=== PATIENT | male | born 1985 | race African-American/Black ===

== ENCOUNTER 2016-07-31 17:46 | Observation (INO) | payer SELFPAY ==
[~2016-07-31] VITALS: Ht 172.7 cm; Wt 111.0 kg
[2016-07-31 17:48] VITALS: BP 185/85; PULSE 86; RESP 16; TEMP 97.8; O2SAT 97
--- NOTE | 2016-07-31 18:30 | RADRPT ---
EXAM DATE/TIME: 07/31/2016 18:10 [facility] COMPARISON: No previous studies available for comparison. INDICATIONS : Stroke alert; right side facial droop, generalized weakness. RADIATION DOSE: 47.43 CTDIvol (mGy) This report was called by Dr. Grossman to Dr. Vegas at 6: 28 PM MEDICAL HISTORY : Non-responsive. SURGICAL HISTORY : Non-responsive. ENCOUNTER: Initial ACUITY: 1 day PAIN SCALE: Non-responsive LOCATION: cranial TECHNIQUE: Multiple contiguous axial images were obtained of the head. Using automated exposure control and adj ustment of the mA and/or kV according to patient size, radiation dose was kept as low as reasonably a chievable to obtain optimal diagnostic quality images. FINDINGS: CEREBRUM: The ventricles are normal for age. There is a remote infarct in the left occipital lobe. No acute inf arct is seen. No extra-axial fluid collections are seen. POSTERIOR FOSSA: The cerebellum and brainstem are intact. The 4th ventricle is midline. The cerebellopontine angle i s unremarkable. EXTRACRANIAL: The visualized portion of the orbits is intact. SKULL: The calvaria is intact. No evidence of skull fracture. CONCLUSION: 1. Remote infarct left occipital lobe. No acute infarction on the current examination. Justin Grossman MD on July 31, 2016 at 18:25 Board Certified Radiologist. This report was verified electronically.
[2016-07-31] MEDS ORDERED: SODIUM CHLOR 0.9% 1000 ML INJ 1,000 ML IV ONE (18:45)
[2016-07-31] MEDS ORDERED: MORPHINE SULFATE 4 MG/ML INJ IV PUSH ONE (18:45)
[2016-07-31 18:51] VITALS: BP 155/76; PULSE 101; RESP 16; O2SAT 98
[2016-07-31 18:53] LABS: I-STAT POTASSIUM 3.8 MMOL/L (3.5-4.9); I-STAT SODIUM 141 MMOL/L (138-146)
[2016-07-31 18:59] LABS: AUTOMATED NEUTROPHIL # 2.1 TH/MM3 (1.8-7.7); BASOPHIL % 0.9 % (0.0-2.0); EOSINOPHIL % 0.5 % (0.0-4.0); HEMATOCRIT 30.6 % (39.0-51.0); LYMPH % 28.8 % (9.0-44.0); MEAN CELL VOLUME 97.1 FL (80.0-100.0); MEAN CORPUSCULAR HEMOGLOBIN 32.2 PG (27.0-34.0); MEAN CORPUSCULAR HGB CONC 33.2 % (32.0-36.0); MONO % 8.8 % (0.0-8.0); PLATELET COUNT 131 TH/MM3 (150-450); RED BLOOD COUNT 3.15 MIL/MM3 (4.50-5.90); RED CELL DISTRIBUTION WIDTH 27.2 % (11.6-17.2); WHITE BLOOD COUNT 3.5 TH/MM3 (4.0-11.0)
[2016-07-31 19:00] LABS: BLOOD, URINE NEG (NEG); GLUCOSE,URINE 1000 mg/dL (NEG); KETONE, URINE TRACE mg/dL (NEG); NITRITE,URINE NEG (NEG); PH, URINE 7.5 (5.0-8.5); URINE COLOR YELLOW (YELLW/STRAW)
[2016-07-31 19:05] LABS: HEMO FLAGS AUTO DIFF
[2016-07-31 19:06] LABS: AMPHETAMINE, URINE NEG (NEG); BARBITURATES, URINE NEG (NEG); COCAINE, URINE NEG (NEG)
[2016-07-31 19:14] LABS: CREATINE KINASE 277 U/L (39-308)
[2016-07-31 19:32] LABS: APTT (PATIENT) 25.9 SEC (24.3-30.1); INTERNATIONAL NORMALIZED RATIO 1.1 RATIO; PROTHROMBIN TIME - PATIENT 12.2 SEC (9.8-11.6)
[2016-07-31] MEDS ORDERED: FOLI1TAB4 PO (19:33)
[2016-07-31] MEDS ORDERED: XARE20TA PO (19:33)
[2016-07-31] MEDS ORDERED: LIPI20TA PO (19:33)
[2016-07-31] MEDS ORDERED: HYDR500C PO ×2 (19:33)
--- NOTE | 2016-07-31 19:43 | PD ---
HPI Chief Complaint: Stroke Alert Time Seen by Provider: 18:02 Travel History International Travel<30 days: No Contact w/Intl Traveler<30days: No Traveled to known affect area: No History of Present Illness HPI 30-year-old male was brought in from the triage with a stroke alert because of 30 minutes onset of right sided upper and lower extremity weakness. 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 These strokes were related to sickle cell crisis and he had required plasmapheresis. Patient is on Xarelto. He was brought in the wheelchair. Vital signs were otherwise stable. Initially when patient first came in he is not complaining of any pain and looked comfortable otherwise. Patient had hypertension. [facility] Past Medical History Narrative Medical List of his past medical, surgical, social and family history was reviewed from the nursing note. Cardiovascular Problems: Yes (IVC CHEST, R IVC GROIN) Cerebrovascular Accident: Yes (x 4) Medical other: Yes (protein c deficiency) Immunizations Current: Yes Sickle Cell Disease: Yes Past Surgical History Surgical History: No Previous Surgery Social History Alcohol Use: No Tobacco Use: No Substance Use: No Allergies-Medications (Allergen,Severity, Reaction): Coded Allergies: Compazine (Unverified Allergy, Mild, 07/31/16) Nonsteroidal Anti-Inflammatory Agts (Unverified Allergy, Mild, 07/31/16) Reglan (Unverified Allergy, Mild, 07/31/16) Zofran (Unverified Allergy, Mild, 07/31/16) Comments List of his allergies reviewed from the nursing note. Reported Meds & Prescriptions Reported Meds & Active Scripts Active Reported Xarelto (Rivaroxaban) 20 Mg Tab 20 Mg PO DAILY Folate (Folic Acid) 1 Mg Tab 1 Mg PO DAILY Lipitor (Atorvastatin Calcium) 20 Mg Tab 60 Mg PO HS Hydrea (Hydroxyurea) 500 Mg Cap 1,500 Mg PO BID Narrative Medication Awaiting for the nurse to med reconciliation. Review of Systems Except as stated in HPI: all other systems reviewed are Neg Physical Exam Narrative GENERAL: Awake, alert, obese, no obvious distress SKIN: Warm and dry. HEAD: Atraumatic. Normocephalic. EYES: Pupils equal and round. No scleral icterus. No injection or drainage. Pale ENT: No nasal bleeding or discharge. Mucous membranes pink and moist. NECK: Trachea midline. No JVD. CARDIOVASCULAR: Regular rate and rhythm. No murmur appreciated. RESPIRATORY: No accessory muscle use. Clear to auscultation. Breath sounds equal bilaterally. GASTROINTESTINAL: Abdomen soft, non-tender, nondistended. Hepatic and splenic margins not palpable. MUSCULOSKELETAL: No obvious deformities. No clubbing. No cyanosis. No edema. NEUROLOGICAL: Awake and alert. No obvious cranial nerve deficits. Right lower and upper extremity weakness with a strength of 3 out of 5. Normal speech. NIH stroke score of 6. PSYCHIATRIC: Appropriate mood and affect; insight and judgment normal. Data Data Last Documented VS Orders Diet Npo (07/31/16 Dinner) Activity Bed Rest (07/31/16 ) Electrocardiogram (07/31/16 ) I-Stat Creatinine (07/31/16 18:02) I-Stat Profile (07/31/16 18:02) Prothrombin Time / Inr (Pt) (07/31/16 18:02) Act Partial Throm Time (Ptt) (07/31/16 18:02) Complete Blood Count With Diff (07/31/16 18:02) Fibrinogen (07/31/16 18:02) Creatine Kinase (Cpk) (07/31/16 18:02) Troponin I (07/31/16 18:02) Ua Includes Microscopic (07/31/16 18:02) Drug Screen, Random Urine (07/31/16 18:02) Type And Screen (07/31/16 18:02) Ct Brain W/O Iv Contrast(Rout) (07/31/16 ) Consult Neurology (07/31/16 ) Blood Glucose (07/31/16 18:02) Ecg Monitoring (07/31/16 18:02) Neuro Checks Q2HX12,Q4H (07/31/16 18:02) Nursing Bedside Swallow Assess .ONCE (07/31/16 18:02) Iv Access Insert/Monitor (07/31/16 18:02) NPO (07/31/16 18:02) Oximetry (07/31/16 18:02) Oxygen Administration (07/31/16 18:02) Resp Oxygen Paulino C Titrat 1-4 L (07/31/16 18:02) Cath For Specimen (07/31/16 18:02) (Hub Use Only)Inp Phy Cons/Ref (07/31/16 ) Mri Brain W/O Contrast (07/31/16 ) Morphine Inj (Morphine Inj) (07/31/16 18:45) Sodium Chlor 0.9% 1000 Ml Inj (Ns 1000 M (07/31/16 18:45) Vascular Access Team Consult PRN (07/31/16 19:06) Vascular Poc Ultrasound (07/31/16 ) Hydromorphone Pf Inj (Dilaudid Pf Inj) (07/31/16 20:30) Hydromorphone Pf Inj (Dilaudid Pf Inj) (07/31/16 21:45) Hydromorphone Pf Inj (Dilaudid Pf Inj) (07/31/16 23:30) Place In Observation (07/31/16 ) Vital Signs (Adult) Q4H (07/31/16 23:30) Activity Oob With Assistance (07/31/16 23:30) Digital Business Analyst / Telemetry .CONTINUOUS (07/31/16 23:30) Sodium Chlor 0.9% 1000 Ml Inj (Ns 1000 M (07/31/16 23:30) Sodium Chloride 0.9% Flush (Ns Flush) (07/31/16 23:30) Sodium Chloride 0.9% Flush (Ns Flush) (08/01/16 09:00) Case Management Consult (07/31/16 23:30) Naloxone Inj (Narcan Inj) (07/31/16 23:30) Admit Order (Ed Use Only) (07/31/16 23:37) Labs MDM Medical Decision Making Medical Screen Exam Complete: Yes Emergency Medical Condition: Yes Medical Record Reviewed: Yes Interpretation(s) Twelve-lead EKG was reviewed by me. Normal sinus rhythm, normal axis, inferior T wave inversions, tachycardia. Heart rate of 108 bpm. Differential Diagnosis TIA, CVA Narrative Course 7:30 PM based on the stroke alert neurologist was called. I discussed the case with the neurologist and explained to him that even though the findings were suggestive of right sided hemiparesis somehow it did not seem very genuine. He has certainly red flags in the form of [place] of [place], allergic to NSAIDs, CT scan dye, MRI contrast. In any case given the fact that he's on Xarelto he was not a TPA candidate. The neurologist agreed. He wanted an MRI without contrast to be ordered. CT scan of the head showed a remote infarct. Awaiting for the MRI to be done and resulted. Patient has been a very difficult IV stick and he has mentioned to the nurse that she requires PICC line every time he comes to the emergency room. A PICC line has been ordered. Case has been signed over to the oncoming ER physician. Patient started asking for pain medication since as per him to the nurse he was hurting from his sickle cell disease. IV morphine was ordered. His hemoglobin was back and it was 10. He does not need transfusion based on this hemoglobin. Critical Care Narrative Aggregate critical care time was 30 minutes. Time to perform other separately billable procedures was not included in the critical care time. My time did not include minutes spent treating any other patients simultaneously or on activities that did not directly contribute to the patient's treatment. The services I provided to this patient were to treat and/or prevent clinically significant deterioration that could result in: Stroke alert I provided critical care services requiring my management, as noted below: Chart data review, documentation time, medication orders and management, vital sign assessments/reviewing monitor data, ordering and reviewing lab tests, ordering and interpreting/reviewing x-rays and diagnostic studies, care of the patient and discussion of the patient with the admitting physicians. Procedures EKG Prior to Arrival: No Physician Communication Physician Communication Dr. Butcher Scripts Metformin (Glucophage)500 Mg [id number] Mg PO BIDPC #60 TAB Prov:Kevin Mcneill MD 08/03/16 Vickie Vegas MD Jul 31, 2016 19:43 MG/DL Urine Leukocyte Esterase NEG Urine RBC LESS THAN 1 /hpf Urine WBC LESS THAN 1 /hpf Microscopic Urinalysis Comment Urine Opiates Screen POS Urine Barbiturates Screen NEG Urine Amphetamines Screen NEG Urine Benzodiazepines Screen NEG Urine Cocaine Screen NEG Urine Cannabinoids Screen NEG Bedside Hemoglobin 10.2 G/DL Bedside Hematocrit 30.0 % Bedside Sodium 141 MMOL/L Bedside Potassium 3.8 MMOL/L Bedside Chloride 103 MMOL/L Bedside Blood Urea Nitrogen LESS THAN 3 MG/DL Bedside Creatinine 0.7 MG/DL Bedside Glucose 294 MG/DL Total Creatine Kinase 277 U/L Troponin I LESS THAN 0.02 NG/ML MDM Medical Decision Making Medical Screen Exam Complete: Yes Emergency Medical Condition: Yes Medical Record Reviewed: Yes Interpretation(s) Twelve-lead EKG was reviewed by me. Normal sinus rhythm, normal axis, inferior T wave inversions, tachycardia. Heart rate of 108 bpm. Differential Diagnosis TIA, CVA Narrative Course 7:30 PM based on the stroke alert neurologist was called. I discussed the case with the neurologist and explained to him that even though the findings were suggestive of right sided hemiparesis somehow it did not seem very genuine. He has certainly red flags in the form of [place], allergic to NSAIDs, CT scan dye, MRI contrast. In any case given the fact that he's on Xarelto he was not a TPA candidate. The neurologist agreed. He wanted an MRI without contrast to be ordered. CT scan of the head showed a remote infarct. Awaiting for the MRI to be done and resulted. Patient has been a very difficult IV stick and he has mentioned to the nurse that she requires PICC line every time he comes to the emergency room. A PICC line has been ordered. Case has been signed over to the oncoming ER physician. Patient started asking for pain medication since as per him to the nurse he was hurting from his sickle cell disease. IV morphine was ordered. His hemoglobin was back and it was 10. He does not need transfusion based on this hemoglobin. Critical Care Narrative Aggregate critical care time was 30 minutes. Time to perform other separately billable procedures was not included in the critical care time. My time did not include minutes spent treating any other patients simultaneously or on activities that did not directly contribute to the patient's treatment. The services I provided to this patient were to treat and/or prevent clinically significant deterioration that could result in: Stroke alert I provided critical care services requiring my management, as noted below: Chart data review, documentation time, medication orders and management, vital sign assessments/reviewing monitor data, ordering and reviewing lab tests, ordering and interpreting/reviewing x-rays and diagnostic studies, care of the patient and discussion of the patient with the admitting physicians. Procedures EKG Prior to Arrival: No Physician Communication Physician Communication Vickie Cagle MD Jul 31, 2016 19:43
[2016-07-31 19:46] LABS: KERATOCYTES OCC (NORMAL); OVALOCYTES 1+ (NORMAL); PLATELET ESTIMATE SMEAR LOW (NORMAL); PLATELET MORPHOLOGY NORMAL (NORMAL); TEARDROP RBCS 1+ (NORMAL)
[2016-07-31 19:47] LABS: SCAN/DIFF AUTO DIFF CONFIRMED
[2016-07-31 20:15] VITALS: BP 127/67; PULSE 90; RESP 16; O2SAT 100
[2016-07-31] MEDS ORDERED: HYDROmorphone HCL PF 1 MG/ML VIAL IV PUSH ONE ×3 (20:30→23:30)
[2016-07-31 21:32] VITALS: PULSE 80
--- NOTE | 2016-07-31 22:50 | RADRPT ---
EXAM DATE/TIME: 07/31/2016 21:50 [facility] COMPARISON: No previous studies available for comparison. INDICATIONS : CVA. MEDICAL HISTORY : Sickle Cell disease. Deep venous thrombosis. Protein C deficiency. SURGICAL HISTORY : IVC Filter placement. ENCOUNTER: Subsequent ACUITY: 1 day PAIN SCORE: 8/10 LOCATION: cranial TECHNIQUE: Multiplanar, multisequence MRI of the brain was performed without contrast. FINDINGS: CEREBRUM: There is a remote infarct in the left occipital lobe. No recent infarct is identified. No mass or mid line shift. No hydrocephalus. WHITE MATTER: No significant signal abnormalities are seen in the white matter. POSTERIOR FOSSA: The cerebellum and brainstem are intact. The 4th ventricle is midline. The cerebellopontine angle is unremarkable. The cerebellar tonsils are normal in position. DIFFUSION IMAGING: No focal areas of restricted diffusion are seen. No evidence of acute infarction. EXTRACRANIAL: The visualized portions of the orbits and paranasal sinuses are unremarkable. CONCLUSION: 1. Remote infarct in left occipital lobe. No acute infarct or mass. Justin Grossman MD on July 31, 2016 at 22:45 Board Certified Radiologist. This report was verified electronically.
--- NOTE | 2016-07-31 23:25 | PD ---
Physical Exam Time Seen by Provider: 23:[address] Vegas left this patient with me to check the MRI and to discharge if his weakness on the right side went away and 2 admitted if no weakness was persistent. Data Data Last Documented VS Vital Signs Date Time Temp Pulse Resp B/P Pulse Ox O2 Delivery O2 Flow Rate FiO2 07/31/16 23:27 110 16 134/79 100 Nasal Cannula 2 07/31/16 17:48 97.8 Orders Diet Npo (07/31/16 Dinner) Activity Bed Rest (07/31/16 ) Electrocardiogram (07/31/16 ) I-Stat Creatinine (07/31/16 18:02) I-Stat Profile (07/31/16 18:02) Prothrombin Time / Inr (Pt) (07/31/16 18:02) Act Partial Throm Time (Ptt) (07/31/16 18:02) Complete Blood Count With Diff (07/31/16 18:02) Fibrinogen (07/31/16 18:02) Creatine Kinase (Cpk) (07/31/16 18:02) Troponin I (07/31/16 18:02) Ua Includes Microscopic (07/31/16 18:02) Drug Screen, Random Urine (07/31/16 18:02) Type And Screen (07/31/16 18:02) Ct Brain W/O Iv Contrast(Rout) (07/31/16 ) Consult Neurology (07/31/16 ) Blood Glucose (07/31/16 18:02) Ecg Monitoring (07/31/16 18:02) Neuro Checks Q2HX12,Q4H (07/31/16 18:02) Nursing Bedside Swallow Assess .ONCE (07/31/16 18:02) Iv Access Insert/Monitor (07/31/16 18:02) NPO (07/31/16 18:02) Oximetry (07/31/16 18:02) Oxygen Administration (07/31/16 18:02) Resp Oxygen Paulino C Titrat 1-4 L (07/31/16 18:02) Cath For Specimen (07/31/16 18:02) (Hub Use Only)Inp Phy Cons/Ref (07/31/16 ) Mri Brain W/O Contrast (07/31/16 ) Morphine Inj (Morphine Inj) (07/31/16 18:45) Sodium Chlor 0.9% 1000 Ml Inj (Ns 1000 M (07/31/16 18:45) Vascular Access Team Consult PRN (07/31/16 19:06) Vascular Poc Ultrasound (07/31/16 ) Hydromorphone Pf Inj (Dilaudid Pf Inj) (07/31/16 20:30) Hydromorphone Pf Inj (Dilaudid Pf Inj) (07/31/16 21:45) Hydromorphone Pf Inj (Dilaudid Pf Inj) (07/31/16 23:30) Place In Observation (07/31/16 ) Vital Signs (Adult) Q4H (07/31/16 23:30) Activity Oob With Assistance (07/31/16 23:30) Flight Controls Engineer / Telemetry .CONTINUOUS (07/31/16 23:30) Diet Heart Healthy (08/01/16 Breakfast) Sodium Chlor 0.9% 1000 Ml Inj (Ns 1000 M (07/31/16 23:30) Sodium Chloride 0.9% Flush (Ns Flush) (07/31/16 23:30) Sodium Chloride 0.9% Flush (Ns Flush) (08/01/16 09:00) Case Management Consult (07/31/16 23:30) Naloxone Inj (Narcan Inj) (07/31/16 23:30) Labs Laboratory Tests Test 07/31/16 07/31/16 07/31/16 18:15 18:25 18:37 White Blood Count 3.5 TH/MM3 Red Blood Count 3.15 MIL/MM3 Hemoglobin 10.2 GM/DL Hematocrit 30.6 % Mean Corpuscular Volume 97.1 FL Mean Corpuscular Hemoglobin 32.2 PG Mean Corpuscular Hemoglobin 33.2 % Concent Red Cell Distribution Width 27.2 % Platelet Count 131 TH/MM3 Mean Platelet Volume 7.8 FL Neutrophils (%) (Auto) 61.0 % Lymphocytes (%) (Auto) 28.8 % Monocytes (%) (Auto) 8.8 % Eosinophils (%) (Auto) 0.5 % Basophils (%) (Auto) 0.9 % Neutrophils # (Auto) 2.1 TH/MM3 Lymphocytes # (Auto) 1.0 TH/MM3 Monocytes # (Auto) 0.3 TH/MM3 Eosinophils # (Auto) 0.0 TH/MM3 Basophils # (Auto) 0.0 TH/MM3 CBC Comment AUTO DIFF Differential Comment AUTO DIFF CONFIRMED Platelet Estimate LOW Platelet Morphology Comment NORMAL Tear Drop Cells 1+ Ovalocytes 1+ Keratocytes OCC Prothrombin Time 12.2 SEC Prothromb Time International 1.1 RATIO Ratio Activated Partial 25.9 SEC Thromboplast Time Fibrinogen 249 mg/dL Urine Color YELLOW Urine Turbidity CLEAR Urine pH 7.5 Urine Specific Chandler 1.020 Urine Protein NEG mg/dL Urine Glucose (UA) 1000 mg/dL Urine Ketones TRACE mg/dL Urine Occult Blood NEG Urine Nitrite NEG Urine Bilirubin NEG Urine Urobilinogen LESS THAN 2.0 MG/DL Urine Leukocyte Esterase NEG Urine RBC LESS THAN 1 /hpf Urine WBC LESS THAN 1 /hpf Microscopic Urinalysis Comment Urine Opiates Screen POS Urine Barbiturates Screen NEG Urine Amphetamines Screen NEG Urine Benzodiazepines Screen NEG Urine Cocaine Screen NEG Urine Cannabinoids Screen NEG Bedside Hemoglobin 10.2 G/DL Bedside Hematocrit 30.0 % Bedside Sodium 141 MMOL/L Bedside Potassium 3.8 MMOL/L Bedside Chloride 103 MMOL/L Bedside Blood Urea Nitrogen LESS THAN 3 MG/DL Bedside Creatinine 0.7 MG/DL Bedside Glucose 294 MG/DL Total Creatine Kinase 277 U/L Troponin I LESS THAN 0.02 NG/ML Blood Type B POSITIVE Antibody Screen NEGATIVE Blood Bank Comment [facility] Medical Record Reviewed: Yes Supervised Visit with CATHLEEN: Yes Differential Diagnosis Malingering to obtain narcotic pain medications, ischemic CVA, sickle cell pain crisis Narrative Course The patient has requested many times for pain medications, specifically Dilaudid. He may be malingering to obtain narcotic pain medications. He has persistent weakness on the right hand and right leg. The MRI shows remote infarct in the left occipital lobe and no acute infarct or mass. Impression: Right hemiparesis Physician Communication Physician Communication I discussed the patient with Dr. Magdaleno, the patient will be 23 hour observation to her. Diagnosis Primary Impression: Hemiparesis of right dominant side Additional Impression: Sickle cell pain crisis Gonzalez Crawley MD Jul 31, 2016 23:25
[2016-07-31 23:27] VITALS: BP 134/79; PULSE 110; RESP 16; O2SAT 100
[2016-07-31] MEDS ORDERED: SODIUM CHLORIDE 0.9% FLUSH 10 ML FLUSH IV FLUSH PRN (23:30)
[2016-07-31] MEDS ORDERED: NALOXONE HCL 0.4 MG/ML AMP IV PRN (23:30)
[2016-08-01] VITALS (8 sets, daily range): BP systolic 139–161; BP diastolic 76–96; PULSE 70–110; RESP 16–20; TEMP 98.1–98.4; O2SAT 96–99
[2016-08-01] MEDS: SODIUM CHLOR 0.9% 1000 ML INJ 1,000 ML IV SCH ×3 (00:26→19:30)
[2016-08-01] MEDS ORDERED: KETOROLAC TROMETHAMINE 30 MG/ML (IVP) VIAL IV PUSH ONE (03:15)
[2016-08-01] MEDS ORDERED: HYDROmorphone HCL PF 1 MG/ML VIAL IV PUSH PRN (08:00)
--- NOTE | 2016-08-01 08:45 | PD.CONS ---
History of Present Illness Service Neurology Consult Requested By er Reason for Consult stroke Primary Care Physician No Primary Care Physician History of Present Illness 30-year-old male was brought in from the triage with a stroke alert because of 30 minutes onset of right sided upper and lower extremity weakness. 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 Patient says that he has history of sickle cell disease and has had strokes in the past that has affected his vision. These strokes were related to sickle cell crisis and he had required plasmapheresis. He is on xarelto. ct brain no ich, no acute lesion. glucose 294. hx of protein c deficiency, dvt's, ivc filter. currently, he feels some weakness on his rt side but is more focused on his pain and getting dilaudid for comfort. has recieved this yesterday. no neck pain. no b/b incontinence. PFSH Past Medical History Narrative Medical List of his past medical, surgical, social and family history was reviewed from the nursing note. Cardiovascular Problems: Yes (IVC CHEST, R IVC GROIN) Cerebrovascular Accident: Yes (x 4) Medical other: Yes (protein c deficiency) Immunizations Current: Yes Sickle Cell Disease: Yes Past Surgical History Surgical History: No Previous Surgery Social History Alcohol Use: No Tobacco Use: No Substance Use: No Allergies-Medications (Allergen,Severity, Reaction): Coded Allergies: Compazine (Unverified Allergy, Mild, 07/31/16) Nonsteroidal Anti-Inflammatory Agts (Unverified Allergy, Mild, 07/31/16) Reglan (Unverified Allergy, Mild, 07/31/16) Zofran (Unverified Allergy, Mild, 07/31/16) Comments List of his allergies reviewed from the nursing note. Narrative Medication Awaiting for the nurse to med reconciliation. Review of Systems Except as stated in HPI: all other systems reviewed are Neg Review of Systems All other ROS: ROS reviewed as documented in chart Past Family Social History Allergies: Coded Allergies: Compazine (Unverified Allergy, Mild, 07/31/16) Nonsteroidal Anti-Inflammatory Agts (Unverified Allergy, Mild, 07/31/16) Reglan (Unverified Allergy, Mild, 07/31/16) Zofran (Unverified Allergy, Mild, 07/31/16) Active Ordered Medications Current Medications Medications (Trade) Dose Ordered Sig/Ashu Route Start Time Stop Time Status Last Admin (NS 1000 ml Inj) 1,000 ml @ 100 mls/hr Q10H IV 07/31/16 23:30 08/01/16 00:26 (NS Flush) 2 ml UNSCH PRN IV FLUSH 07/31/16 23:30 (NS Flush) 2 ml BID IV FLUSH 08/01/16 09:00 (Narcan Inj) 0.4 mg UNSCH PRN IV 07/31/16 23:30 (Dilaudid Pf Inj) 1 mg Q8HR PRN IV PUSH 08/01/16 08:00 Exam I&O / VS Vital Signs Date Time Temp Pulse Resp B/P Pulse Ox O2 Delivery O2 Flow Rate FiO2 08/01/16 07:36 70 20 155/87 96 08/01/16 06:23 Nasal Cannula 2.00 08/01/16 02:22 93 20 155/96 97 Nasal Cannula 2 08/01/16 00:26 99 16 140/87 99 Nasal Cannula 2 07/31/16 23:27 110 16 134/79 100 Nasal Cannula 2 07/31/16 21:32 80 07/31/16 20:15 90 16 127/67 100 Nasal Cannula 2 07/31/16 18:51 101 16 155/76 98 Nasal Cannula 2 07/31/16 17:52 99 Nasal Cannula 2 07/31/16 17:48 97.8 86 16 185/85 97 General: Alert and Oriented, Mild distress Eye: EOMI Respiratory: Non-labored respirations Neurologic: Alert, Oriented, Normal DTR's Psychiatric: Cooperative Exam Comments ox 3. in mild distress 2/2 pain, eomi, rt superior pie in the meka field cut, eomi, face sym, sahu to gravity with mild rt sided weakness, which may be proportional to pt effort; also states this has been weak before, no clonus, planter flexor Review/Management Diagnosis/Plan: (1) Hemiparesis of right dominant side Plan: no acute infarct on mri scan hx of protein c deficiency and dvt's in the past recs continue OAC check mra brain/carotids consider heme eval for sickle cell ?opiod seeking vs sickle cell crisis- defer to medical wt loss/exercise/bp/lipid/glucose control (2) Chronic ischemic left CREDIT RISK REVIEW OFFICER stroke (3) Sickle cell pain crisis (4) Obesity (BMI 30-39.9) Stanislaw Carcamo MD Aug 01, 2016 08:45
--- NOTE | 2016-08-01 08:58 | HHI.HP ---
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 The patient reports yesterday he started to notice weakness of the right face, right arm, and right leg. He feels he is having a sickle cell crisis however he has presented the same way with previous strokes. He states usually once a stroke is ruled out, it requires IV Dilaudid 2mg q2h and IV Benadryl 50mg q4h to treat his sickle cell crisis. He complains of diffuse pain throughout his back, hands, legs. Denies any new injury. Denies any recent nausea/vomiting/diarrhea. He has been eating well. He is very upset he is not receiving his usual dose of pain medication and is difficult to obtain further information. His bag bleacher is Dr. Damico in [place], [place] (call placed to the office at , left a message with secretary office clerk for to return call). His internal medicine/neurologist is Dr. Michael Zuluaga in [place], [place] (call placed to , office still closed at this time). 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 Past Surgical History IVC filters in chest and groin Reported Medications Xarelto 20 mg daily Hydroxyurea 1500 mg twice a day Lipitor 60 mg at bedtime Folate 1 mg daily Allergies: Coded Allergies: Compazine (Unverified Allergy, Mild, 07/31/16) Nonsteroidal Anti-Inflammatory Agts (Unverified Allergy, Mild, 07/31/16) Reglan (Unverified Allergy, Mild, 07/31/16) Zofran (Unverified Allergy, Mild, 07/31/16) Active Ordered Medications Current Medications Medications (Trade) Dose Ordered Sig/Ashu Route Start Time Stop Time Status Last Admin (NS 1000 ml Inj) 1,000 ml @ 100 mls/hr Q10H IV 07/31/16 23:30 08/01/16 00:26 (NS Flush) 2 ml UNSCH PRN IV FLUSH 07/31/16 23:30 (NS Flush) 2 ml BID IV FLUSH 08/01/16 09:00 (Narcan Inj) 0.4 mg UNSCH PRN IV 07/31/16 23:30 (Dilaudid Pf Inj) 1 mg Q8HR PRN IV PUSH 08/01/16 08:00 (Xarelto) 20 mg DAILY PO 08/01/16 09:00 UNV Family History Sickle cell, heart disease, protein C deficiency, hypothyroidism Social History Denies any tobacco, alcohol, or illicit drug use. Physical Exam Vital Signs Vital Signs Date Time Temp Pulse Resp B/P Pulse Ox O2 Delivery O2 Flow Rate FiO2 08/01/16 07:36 70 20 155/87 96 08/01/16 06:23 Nasal Cannula 2.00 08/01/16 02:22 93 20 155/96 97 Nasal Cannula 2 08/01/16 00:26 99 16 140/87 99 Nasal Cannula 2 07/31/16 23:27 110 16 134/79 100 Nasal Cannula 2 07/31/16 21:32 80 07/31/16 20:15 90 16 127/67 100 Nasal Cannula 2 07/31/16 18:51 101 16 155/76 98 Nasal Cannula 2 07/31/16 17:52 99 Nasal Cannula 2 07/31/16 17:48 97.8 86 16 185/85 97 Physical Exam GENERAL: Well-nourished, well-developed middle aged AA male patient in NAD. SKIN: Warm and dry. No rash. HEAD: Normocephalic. Atraumatic. EYES: Pupils equal and round. No scleral icterus. No injection or drainage. ENT: No nasal bleeding or discharge. Mucous membranes pink and moist. NECK: Supple. Trachea midline. CARDIOVASCULAR: Regular rate and rhythm. S1, S2 noted. No murmur appreciated. RESPIRATORY: No accessory muscle use. Clear to auscultation. Breath sounds equal bilaterally. GASTROINTESTINAL: Abdomen soft, non-tender, nondistended. Normoactive bowel sounds x4. MUSCULOSKELETAL: No obvious deformities. Extremities without clubbing, cyanosis , or edema. NEUROLOGICAL: Awake and alert. No obvious cranial nerve deficits. Motor grossly within normal limits. 5/5 muscle strength in bilateral upper and lower extremities. Normal speech. PSYCHIATRIC: Agitated mood; insight and judgment normal. Laboratory Laboratory Tests Test 07/31/16 07/31/16 07/31/16 18:15 18:25 18:37 White Blood Count 3.5 Red Blood Count 3.15 Hemoglobin 10.2 Hematocrit 30.6 Mean Corpuscular Volume 97.1 Mean Corpuscular Hemoglobin 32.2 Mean Corpuscular Hemoglobin 33.2 Concent Red Cell Distribution Width 27.2 Platelet Count 131 Mean Platelet Volume 7.8 Neutrophils (%) (Auto) 61.0 Lymphocytes (%) (Auto) 28.8 Monocytes (%) (Auto) 8.8 Eosinophils (%) (Auto) 0.5 Basophils (%) (Auto) 0.9 Neutrophils # (Auto) 2.1 Lymphocytes # (Auto) 1.0 Monocytes # (Auto) 0.3 Eosinophils # (Auto) 0.0 Basophils # (Auto) 0.0 CBC Comment AUTO DIFF Differential Comment AUTO DIFF CONFIRMED Platelet Estimate LOW Platelet Morphology Comment NORMAL Tear Drop Cells 1+ Ovalocytes 1+ Keratocytes OCC Prothrombin Time 12.2 Prothromb Time International 1.1 Ratio Activated Partial 25.9 Thromboplast Time Fibrinogen 249 Urine Color YELLOW Urine Turbidity CLEAR Urine pH 7.5 Urine Specific [place] 1.020 Urine Protein NEG Urine Glucose (UA) 1000 Urine Ketones TRACE Urine Occult Blood NEG Urine Nitrite NEG Urine Bilirubin NEG Urine Urobilinogen LESS THAN 2.0 Urine Leukocyte Esterase NEG Urine RBC LESS THAN 1 Urine WBC LESS THAN 1 Microscopic Urinalysis Comment Urine Opiates Screen POS Urine Barbiturates Screen NEG Urine Amphetamines Screen NEG Urine Benzodiazepines Screen NEG Urine Cocaine Screen NEG Urine Cannabinoids Screen NEG Bedside Hemoglobin 10.2 Bedside Hematocrit 30.0 Bedside Sodium 141 Bedside Potassium 3.8 Bedside Chloride 103 Bedside Blood Urea Nitrogen LESS THAN 3 Bedside Creatinine 0.7 Bedside Glucose 294 Total Creatine Kinase 277 Troponin I LESS THAN 0.02 Blood Type B POSITIVE Antibody Screen NEGATIVE Blood Bank Comment Result Diagram: 07/31/161814 Imaging Last Impressions Head CT 07/31/16 0000 Signed Impressions: Service Date/Time: July 18:10 - CONCLUSION: 1. Remote infarct left occipital lobe. No acute infarction on the current examination. Justin Grossman MD Brain MRI 07/31/16 0000 Signed Impressions: Service Date/Time: July 21:50 - CONCLUSION: 1. Remote infarct in left occipital lobe. No acute infarct or mass. 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 Right Sided Hemiparesis: of face/RUE/RLE x1day. Head CT and brain MRI images reviewed, shows remote infarct left occipital lobe; no acute infarct. Consulted neurology, seen by Dr. Carcamo. Ordered brain/carotid MRA. Echocardiogram ordered. Continue patient's Xarelto and statin. Consult PT. Monitor on telemetry. Neuro checks. Check lipid panel and HgbA1c. Sickle cell crisis: Complains of diffuse pain throughout back/arms/legs. Hemoglobin 10.2. Patient reports it requires IV Dilaudid 2mg q2h and IV Benadryl 50mg q4h to treat his sickle cell crisis. His bag bleacher is Dr. Damico in [place], [place] (call placed to the office at , left a message with secretary office clerk for to return call). His internal medicine/ neurologist is Dr. Michael Zuluaga in [place], [place] (call placed to , office still closed at this time). Consult hematology. Hold hydroxyurea while in crisis. Continue with IV Dilaudid 1mg q4h prn, Benadryl 25mg q4h prn. Give IVF and Oxygen. 1300hrs: Patient extremely difficult to communicate with, very focused on pain medication throughout conversation, explained since he is unknown to [place], would like to verify his diagnosis and medication dosing with his providers prior to starting such high doses of Dilaudid in combination with IV benadryl. Patient unwilling to wait for this. Please note, patient was sound asleep upon our arrival, snoring even, had to be shaken to awaken him. However Dr. Fregoso also thoroughly explained as the patient presented with stroke like symptoms, need to complete neurologist's work up and rule out CVA prior to initiating these very sedating medications. The patient asked for physician to return to the room several times with same complaint, wanting increased pain medications. He initially refused to perform MRA until he receives 2mg IV Dilaudid. The patient was then witnessed trying to stop every person in white coat who passed the room, eventually was able to track down our colleague Dr. Mcneill, after patient had long discussion with Dr. Mcneill, he told admission discharge rn he wants to "fire" his doctor and wants Dr. Mcneill on his case. Thoroughly discussed with Bailey RN, Myra vega RN, Blanca RN with [facility], patient will be transferred to Dr. Mcneill's service, much appreciate his assistance. Hyperglycemia: glucose 294. No hx of diabetes. Check HgbA1c. Repeat BMP. DVT Prophylaxis: on xarelto I spent 35 minutes [id number] with the patient or on the pulliam discussing the patient's disposition, prognosis, and plan of care with his caregivers. Over half the time spent was devoted to counseling the patient regarding placement in coordinating care with caregivers and case management Written by Lali Draper, acting as scribe for Dr. Fregoso on 08/01/16 at 08:55. All or portions of this note were transcribed by scribe Lali Draper. I, Dr. Natalie Fregoso personally performed the history, physical exam, and medical decision making; and confirmed the accuracy of the information in the transcribed note. Authenticated by Dr. Natalie Fregoso on 08/01/16 at 08:55. Discussed Condition With Patient, Lali Shah PA-C Aug 01, 2016 08:58 Natalie Fregoso MD Aug 01, 2016 19:25
[2016-08-01] MEDS: SODIUM CHLORIDE 0.9% FLUSH 10 ML FLUSH IV FLUSH SCH ×2 (09:00→21:00)
[2016-08-01] MEDS ORDERED: diphenhydrAMINE HCL 25 MG CAP PO PRN (09:15)
[2016-08-01] MEDS: HYDROmorphone HCL PF 1 MG/ML VIAL IV PUSH PRN ×2 (09:16→13:29)
[2016-08-01] MEDS ORDERED: LORazepam 2 MG/ML VIAL IV PUSH PRN (09:30)
[2016-08-01] MEDS ORDERED: diphenhydrAMINE HCL 50 MG/ML VIAL IV ONE (10:30)
[2016-08-01] MEDS: RIVAROXABAN 20 MG TAB PO SCH (11:49)
--- NOTE | 2016-08-01 12:17 | RADRPT ---
EXAM DATE/TIME: 08/01/2016 10:49 [facility] COMPARISON: No previous studies available for comparison. INDICATIONS : Stroke. MEDICAL HISTORY : Sickle Cell disease. Deep venous thrombosis. Stroke SURGICAL HISTORY : None. ENCOUNTER: Initial ACUITY: 2 day PAIN SCORE: 0/10 LOCATION: head Please note a normal MRA of the brain does not entirely exclude the possibility of a small aneurysm, nor the possibility of distal intracranial vessel disease. TECHNIQUE: 3D time of flight MRA was performed. Source images, multiplanar STS MIP, and 3D volume MIP reconstru ctions were reviewed. FINDINGS: Study is extremely limited by motion artifact. The axial source images, a bleeding flow vessels are a ll patent. Similarly, intracranial vessels are patent without aneurysmal disease. The right posterior commuting artery is diminutive but patent. 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 CONCLUSION: 1. Anatomic detail is very limited due to motion artifact. 2. However, I believe the inflow and intracranial vessels are patent without aneurysmal disease. Precious omic variant of the mechoopda of [place]. Nader Teresa MD on August 01, 2016 at 12:14 Board Certified Radiologist. This report was verified electronically.
--- NOTE | 2016-08-01 12:19 | RADRPT ---
EXAM DATE/TIME: 08/01/2016 10:49 [facility] COMPARISON: No previous studies available for comparison. INDICATIONS : Stroke alert. CONTRAST: 20 cc Omniscan (gadodiamide) IV MEDICAL HISTORY : Stroke Sickle Cell disease. Deep venous thrombosis. SURGICAL HISTORY : None. ENCOUNTER: Initial ACUITY: 2 day PAIN SCORE: 0/10 LOCATION: Head Percent stenosis is calculated using the diameter of the stenotic region over the diameter of the nor mal distal internal carotid artery. TECHNIQUE: Bolus infused MRA of the extracranial circulation was performed using a neurovascular coil. Post pro cessing was performed including rotating subvolume maximum intensity projections of each carotid nisreen ry, rotating full volume maximum intensity projections of both carotid arteries, sagittal and coronal sliding thin slab reformations of each carotid artery, and left oblique sliding thin slab reformatio n through the aortic arch to include the origin of the arch branch vessels. FINDINGS: AORTIC ARCH: Bovine arch. No evidence of ostial narrowing. RIGHT CAROTID: The common carotid artery is intact. The carotid bulb has a normal configuration without ulceration or narrowing. The internal carotid artery lumen is smooth without stenosis. The external carotid ar angelique is intact. LEFT CAROTID: The common carotid artery is intact. The carotid bulb has a normal configuration without ulceration or narrowing. The internal carotid artery lumen is smooth without stenosis. The external carotid ar angelique is intact. VERTEBRALS: The vertebral arteries have a symmetric diameter. No stenotic lesions are seen. CONCLUSION: Bovine arch. Cervical vessels are otherwise patent. Nader Teresa MD on August 01, 2016 at 12:16 Board Certified Radiologist. This report was verified electronically.
[2016-08-01] MEDS ORDERED: diphenhydrAMINE HCL 50 MG CAP PO PRN (15:00)
[2016-08-01] MEDS: HYDROmorphone HCL PF 2 MG/ML VIAL IV PUSH PRN ×4 (15:37→23:05)
[2016-08-01] MEDS: diphenhydrAMINE HCL 50 MG/ML VIAL IV PUSH PRN ×2 (18:49→23:05)
[2016-08-01] MEDS: ATORVASTATIN 20 MG TAB PO SCH (21:07)
--- NOTE | 2016-08-01 21:20 | RADRPT ---
EXAM DATE/TIME: 08/01/2016 19:53 [facility] COMPARISON: ABDOMEN KUB ONLY, August 01, 2016, 20:02. INDICATIONS : Short of breath and evalute for filter. MEDICAL HISTORY : None. SURGICAL HISTORY : Filter. ENCOUNTER: Initial ACUITY: 1 day PAIN SCORE: 2/10 LOCATION: Bilateral chest FINDINGS: A retrievable vena caval filter is seen within the superior vena cava. On the lateral view, filter is also seen in the inferior vena cava. The lungs are focally clear. No effusion is suspected. Cardiome diastinal contours are satisfactory. Thoracic skeleton is grossly intact. CONCLUSION: Superior and inferior vena caval filter is present. Randal Jaramillo MD on August 01, 2016 at 21:16 Board Certified Radiologist. This report was verified electronically.
--- NOTE | 2016-08-01 21:27 | RADRPT ---
EXAM DATE/TIME: 08/01/2016 20:02 [facility] COMPARISON: No previous studies available for comparison. INDICATIONS : Abdomen pain and evalute for filter. MEDICAL HISTORY : None. SURGICAL HISTORY : Filter. ENCOUNTER: Initial ACUITY: 1 day PAIN SCORE: 10/10 LOCATION: Bilateral lower quadrant and upper quadrant. FINDINGS: An inferior vena caval filter is present. This is of the retrievable generation. The intestinal gas p attern is nonspecific and benign. There are no suspicious calcific densities identified. There are is a small cluster of metallic density along the right lateral flank region which may be foreign materi al in or on the patient. The regional skeleton is grossly intact. CONCLUSION: Retrievable IVC filter is present. Randal Jaramillo MD on August 01, 2016 at 21:24 Board Certified Radiologist. This report was verified electronically.
[2016-08-01 22:27] LABS: AUTOMATED NEUTROPHIL # 1.2 TH/MM3 (1.8-7.7); BASOPHIL # 0.1 TH/MM3 (0-0.2); BASOPHIL % 1.8 % (0.0-2.0); EOSINOPHIL % 0.1 % (0.0-4.0); HEMATOCRIT 30.5 % (39.0-51.0); LYMPH % 45.9 % (9.0-44.0); LYMPHOCYTE # 1.4 TH/MM3 (1.0-4.8); MEAN CELL VOLUME 94.7 FL (80.0-100.0); MEAN CORPUSCULAR HEMOGLOBIN 31.8 PG (27.0-34.0); MEAN CORPUSCULAR HGB CONC 33.6 % (32.0-36.0); MONO % 12.6 % (0.0-8.0); NEUT % 39.6 % (16.0-70.0); PLATELET COUNT 150 TH/MM3 (150-450); RED BLOOD COUNT 3.22 MIL/MM3 (4.50-5.90); RED CELL DISTRIBUTION WIDTH 27.3 % (11.6-17.2); RETIC % 1.6 % (0.4-3.0); WHITE BLOOD COUNT 3.1 TH/MM3 (4.0-11.0)
[2016-08-01 22:29] LABS: HEMO FLAGS AUTO DIFF; REVIEW FLAG AUTO DIFF
[2016-08-01 22:37] LABS: ALT (GPT) 31 U/L (12-78); ANION GAP 9 MEQ/L (5-15); AST (GOT) 17 U/L (15-37); BICARBONATE 26.9 MEQ/L (21.0-32.0); BLOOD UREA NITROGEN 5 MG/DL (7-18); CHLORIDE 107 MEQ/L (98-107); GLOMERULAR FILTRATION RATE 109 ML/MIN (>89); POTASSIUM 3.6 MEQ/L (3.5-5.1); SODIUM (NA) 143 MEQ/L (136-145)
[2016-08-01 22:41] LABS: WESTERGREN SEDIMENTATION RATE 19 mm/hr (0-15)
[2016-08-01 23:02] LABS: KERATOCYTES OCC (NORMAL); OVALOCYTES 1+ (NORMAL); SCAN/DIFF AUTO DIFF CONFIRMED; TEARDROP RBCS 1+ (NORMAL)
[2016-08-01 23:03] LABS: ALKALINE PHOSPHATASE 137 U/L (45-117); LDH SERUM 282 U/L (87-241); TOTAL BILIRUBIN ADULT 0.5 MG/DL (0.2-1.0)
[2016-08-02] VITALS (7 sets, daily range): BP systolic 124–170; BP diastolic 78–94; PULSE 62–95; RESP 18–20; TEMP 97.6–98.9; O2SAT 97–99
[2016-08-02] MEDS: HYDROmorphone HCL PF 2 MG/ML VIAL IV PUSH PRN ×8 (03:20→23:12)
[2016-08-02] MEDS: diphenhydrAMINE HCL 50 MG/ML VIAL IV PUSH PRN ×5 (03:26→23:08)
[2016-08-02] MEDS: SODIUM CHLOR 0.9% 1000 ML INJ 1,000 ML IV SCH ×3 (05:30→22:59)
[2016-08-02] MEDS: SODIUM CHLORIDE 0.9% FLUSH 10 ML FLUSH IV FLUSH SCH ×2 (09:00→21:00)
[2016-08-02] MEDS: RIVAROXABAN 20 MG TAB PO SCH (09:35)
[2016-08-02] MEDS: FOLIC ACID 1 MG TAB PO SCH (09:35)
--- NOTE | 2016-08-02 11:14 | EKG ---
Date Performed: 07/31/2016 Time Performed: 18:04:01 PTAGE: 30 years EKG: SINUS TACHYCARDIA NONSPECIFIC T-WAVE ABNORMALITY ABNORMAL RHYTHM ECG NO PREVIOUS TRACING DOCTOR: Arlene Merritt Interpretating Date/Time 08/02/2016 11:09:45
--- NOTE | 2016-08-02 11:48 | PD.ONC.PN ---
Subjective Subjective Remarks more comfortable Objective Data Date Time Temp Pulse Resp B/P Pulse Ox O2 Delivery O2 Flow Rate FiO2 08/02/16 08:58 20 08/02/16 08:38 97.7 77 20 124/78 99 08/02/16 08:00 62 08/02/16 03:34 97.9 88 18 153/94 99 08/02/16 00:28 98.4 86 18 140/92 99 08/01/16 21:55 98 08/01/16 20:00 74 08/01/16 19:34 98.1 110 18 139/76 96 08/01/16 16:35 98.4 107 18 161/90 98 Result Diagram: 08/01/16214908/01/162149 Laboratory Results Laboratory Tests Test 08/01/16 08/01/16 12:01 21:50 Blood Type B POSITIVE Direct Antiglobulin Test NEGATIVE (Aleksey) White Blood Count 3.1 TH/MM3 Red Blood Count 3.22 MIL/MM3 Hemoglobin 10.2 GM/DL Hematocrit 30.5 % Mean Corpuscular Volume 94.7 FL Mean Corpuscular Hemoglobin 31.8 PG Mean Corpuscular Hemoglobin 33.6 % Concent Red Cell Distribution Width 27.3 % Platelet Count 150 TH/MM3 Mean Platelet Volume 8.4 FL Neutrophils (%) (Auto) 39.6 % Lymphocytes (%) (Auto) 45.9 % Monocytes (%) (Auto) 12.6 % Eosinophils (%) (Auto) 0.1 % Basophils (%) (Auto) 1.8 % Neutrophils # (Auto) 1.2 TH/MM3 Lymphocytes # (Auto) 1.4 TH/MM3 Monocytes # (Auto) 0.4 TH/MM3 Eosinophils # (Auto) 0.0 TH/MM3 Basophils # (Auto) 0.1 TH/MM3 CBC Comment AUTO DIFF Differential Comment AUTO DIFF CONFIRMED Tear Drop Cells 1+ Ovalocytes 1+ Keratocytes OCC Erythrocyte Sedimentation Rate 19 mm/hr Reticulocyte Count 1.6 % Absolute Reticulocyte Count 52.8 MIL/L Haptoglobin LESS THAN 10 MG/DL Sodium Level 143 MEQ/L Potassium Level 3.6 MEQ/L Chloride Level 107 MEQ/L Carbon Dioxide Level 26.9 MEQ/L Anion Gap 9 MEQ/L Blood Urea Nitrogen 5 MG/DL Creatinine 0.97 MG/DL Estimat Glomerular Filtration 109 ML/MIN Rate Random Glucose 154 MG/DL Calcium Level 8.4 MG/DL Total Bilirubin 0.5 MG/DL Aspartate Amino Transf 17 U/L (AST/SGOT) Alanine Aminotransferase 31 U/L (ALT/SGPT) Alkaline Phosphatase 137 U/L Lactate Dehydrogenase 282 U/L Total Protein 7.0 GM/DL Albumin 4.0 GM/DL Vitamin B12 Level 407 PG/ML Thyroid Stimulating Hormone 1.740 uIU/ML 3rd Gen Administered Medications Medications (Trade) Dose Ordered Sig/Ashu Route PRN Reason Start Time Stop Time Status Last Admin Dose Admin Sodium Chloride (NS 1000 ml Inj) 1,000 ml @ 100 mls/hr Q10H IV 07/31/16 23:30 08/02/16 05:30 Sodium Chloride (NS Flush) 2 ml BID IV FLUSH 08/01/16 09:00 08/02/16 09:00 Rivaroxaban (Xarelto) 20 mg DAILY PO 08/01/16 10:00 08/02/16 09:35 Atorvastatin Calcium (Lipitor) 60 mg HS PO 08/01/16 21:00 08/01/16 21:07 Folic Acid (Folate) 1 mg DAILY PO 08/02/16 09:00 08/02/16 09:35 Hydromorphone HCl (Dilaudid Pf Inj) 2 mg Q2H PRN IV PUSH PAIN SCALE 7 TO 10 08/01/16 15:00 08/02/16 10:37 Diphenhydramine HCl (Benadryl Inj) 50 mg Q4H PRN IV PUSH itching 08/01/16 17:45 08/02/16 08:19 Objective Remarks GENERAL: Well-nourished, well-developed patient. SKIN: Warm and dry. HEAD: Normocephalic. EYES: No scleral icterus. No injection or drainage. NECK: Supple, trachea midline. No JVD or lymphadenopathy. LYMPHATIC: No adenopathy. CARDIOVASCULAR: Regular rate and rhythm without murmurs. RESPIRATORY: Breath sounds equal bilaterally. No accessory muscle use. GASTROINTESTINAL: Abdomen soft, non-tender, nondistended. EXTREMITIES: No cyanosis, or edema. MUSCULOSKELETAL: Adequate muscle tone. NEUROLOGICAL: No obvious focal deficit. Awake, alert, and oriented x3. PSYCHIATRIC: Appropriate mood and affect; insight and judgment normal. Assessment/Plan Assessment 1: very interesting and perplexing. His cbc and peripheral smear is not consistent with sickle cell disease. He does have a small amount of hemolysis as reflected by the low haptoglobin and elevated LDH, yet the retic count and bili are not elevated. He has has hx of arterial and venous clots and review of the chest and abd film shows filters in IVC and SVC. I discussed these details with him and the fact we do not have a dx in spite of many years. I await the hemoglobin electrophoresis which can be diagnostic and have ordered flow cytometry for [facility] given the history of multiple thrombosis and ? chronic low grade hemolysis. John Rain MD Aug 02, 2016 11:48
[2016-08-02 12:45] LABS: HDL CHOLESTEROL 39.5 MG/DL (40.0-60.0)
--- NOTE | 2016-08-02 13:20 | MB ---
cc: [facility]List DATE OF CONSULTATION: 08/02/2016 REASON FOR CONSULTATION: I am asked to see the patient because of a sickle-cell crisis. PATIENT PROFILE The patient is a 30-year black male. He is . He has two children, ages three and five. He was born in [place], [place]. He lives in [place]. 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 He also has some involvement with horses that was not clear. He does not smoke and does not drink. HISTORY OF PRESENT ILLNESS The patient has a history which is not well supported by a series of facts. He tells me that he has sickle-cell disease and he has had multiple crises. He apparently came to this hospital because of pain in the spine and the joints. He also had right-sided weakness which has improved. He believes that he is having another one of his sickle-cell crises. He tells me the crises usually last for several days and respond to IV fluids and pain medications. Prior to seeing the patient I went to the laboratory to review his CBC and platelet count from 07/31. hemoglobin was 10.2, white count 3500 and platelets were 131,000. He had 61% neutrophils, 28% lymphocytes. There were no sickle cells present. There was polychromasia there was an anisocytosis with some large polychromatophilic cells and some smaller cells. There was slight poikilocytosis there was a very rare schistocyte present. There is nothing that suggested sickle-cell disease. In spite of this he tells me this is his lifetime diagnosis. He tells me that he takes hydroxyurea 1500 mg a day and that this has been prescribed by his crop specialist, Dr. Summers who is in [place], [place]. The history also become further complicated by a the fact that he tells me he has protein C deficiency and that he has had multiple clots involving the lower extremities and has had clots involving the upper extremities at one point he was on Coumadin. He is now on Xarelto. 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 His crop specialist is Dr. Summers in [place]. I called the office and spoke to one of the office managers. They were kind enough to give me the telephone number of his crop specialist and I called Dr. Summers and asked for further information. He did not have his chart available but he told me the following. 1. The patient does not have sickle-cell disease. 2. 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 3. He has had multiple episodes venous thrombosis. 4. It is unclear that he has protein C deficiency. 5. He does not remember giving the patient hydroxyurea although the patient swears to me that he has managed his hydroxyurea with different doses over a number of years. I shared much of this information with the patient and he is stupefied by this information and at this point it is totally unclear to me what is fact and what is not fact. Regardless of the above the patient is doing better. He has had a number of studies. He had an head MRA on August 01. Anatomic details limited due to motion artifact but nothing was identified which would be considered abnormal. A neck MRA of the carotids, and the vertebral bodies was unremarkable. A MRI of the brain showed remote infarct in left occipital lobe. There is no acute infarct or mass. CT HEAD Showed remote infarct left occipital lobe. LABORATORY FINDINGS Lytes, BUN and creatinine are notable for glucose of 294, a urine opiate screen was positive. Urinalysis was unremarkable. PAST SURGICAL HISTORY 1. The patient has had a IVC filter and a SVC filter placed. 2. By history sickle-cell disease. 3. 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 4. Protein C deficiency. 5. Multiple lower extremity DVT and history of upper extremity DVT right arm 6. History of several strokes. MEDICATIONS PRIOR TO ADMISSION 1. Lipitor 60 mg a day 2. Xarelto 20 mg a day. 3. Hydroxyurea 1500 mg a day 4. Folic acid 10 mg a day. 5. The patient uses OxyContin 20 mg p.o. q 12 hours as needed. 6. Dilaudid 8 mg p.o. q.6 h for painful crisis. ALLERGIES REGLAN COMPAZINE PENICILLIN NSAIDs ZOFRAN FAMILY HISTORY The patient believes his father has sickle-cell disease and mother has trait. He has six brothers, four with sickle-cell disease and two with trait. REVIEW OF SYSTEMS HEAD, EYES, EARS, NOSE, AND THROAT: Vision is good except for a right field deficit hearing fine. CARDIOVASCULAR SYSTEM: No chest pain, palpitations. RESPIRATORY: No shortness of breath, cough. GASTROINTESTINAL: No melena acute hematemesis or melena. GENITOURINARY: No dysuria, frequency. MUSCULOSKELETAL: Back pain primarily in the spine, joints, hips and ankles. NEUROLOGIC: Right sided weakness which is improved. PHYSICAL EXAMINATION VITAL SIGNS: The patient appears comfortable. Blood pressure 160/90, respiratory rate 18, pulse 100 afebrile 98% saturation HEAD, EARS, EYES, NOSE, AND THROAT: head is normocephalic. Conjunctivae are normal. There is no adenopathy. HEART: Regular rhythm. LUNGS: Clear. ABDOMEN: Soft hepatosplenomegaly. EXTREMITIES: Trace edema. MUSCULOSKELETAL: There is pain over the spine. NEUROLOGIC: No overt weakness with detailed exam not done. 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 He tells me he has sickle-cell disease. His peripheral smear is not consistent with this. Hydroxyurea is used to treat sickle-cell disease. I have spoken with his crop specialist who says he has C trait. He is also not clear that he has protein C deficiency. In talking to his crop specialist it is clear that he has had previous DVT. In addition, we have evidence of a previous stroke on the MRI so there is a hypercoagulable condition. RECOMMENDATIONS 1. I would recommend continuing the Xarelto and limited pain medicines. 2. The information I have is not consistent with a diagnosis of sickle cell. This should not be very difficult to sort out. His peripheral smear is not entirely normal but is not what I would expect from sickle-cell disease. 4. I have ordered a CMP, haptoglobin, hemoglobin electrophoresis, LDH, retic count. The hemoglobin electrophoresis will clarify whether he has sickle-cell trait hemoglobin C, etc. 5. Will also order a protein C level. 6. I have asked him to bring in his bottle containing hydroxyurea as his crop specialist does not have recollection of giving him hydroxyurea and the patient tells me he is taking 3 tablets a day. Ordinarily when one takes significant amounts of hydroxyurea the MCV is increased and his MCV is 97. I am also going to order a chest x-ray and a flat plate of the abdomen and to verify the presence of a superior vena cava filter and the presence of an IVC filter. 7. When I went to see the patient today I learned that the blood work I ordered in the morning was not drawn. The nurse indicated that the patient had declined the blood work. He told me he was bring brought to the MRI facility and under those circumstances he felt overwhelmed. It will be important to sort out what is and what is not true. MD BERNA Tam/monika /7:23 PM /10:59 AM CORBY
[2016-08-02 13:40] LABS: HEMOGLOBIN A1a 1.8 %; HEMOGLOBIN A1b 0.8 %; HEMOGLOBIN Ao 53.5 %; HEMOGLOBIN F 5.5 %; HEMOGLOBIN LA1C 1.6 %; HEMOGLOBIN P3 3.6 %
--- NOTE | 2016-08-02 14:01 | HHI.PR ---
Subjective Remarks Follow-up right sided hemiparesis/SCC? 08/02/16-patient seen and examined, no acute event overnight and pain currently controlled. Objective Vitals Vital Signs Date Time Temp Pulse Resp B/P Pulse Ox O2 Delivery O2 Flow Rate FiO2 08/02/16 11:07 20 08/02/16 08:38 97.7 77 20 124/78 99 08/02/16 08:00 62 08/02/16 03:34 97.9 88 18 153/94 99 08/02/16 00:28 98.4 86 18 140/92 99 08/01/16 21:55 98 08/01/16 20:00 74 08/01/16 19:34 98.1 110 18 139/76 96 08/01/16 16:35 98.4 107 18 161/90 98 Result Diagram: 08/01/16214908/01/162149 Imaging Last Impressions Neck Magnetic Resonance Angiography 08/01/16 0000 Signed Impressions: Service Date/Time: Monday, August 01, 2016 10:49 - CONCLUSION: Bovine arch. Cervical vessels are otherwise patent. Nader Teresa MD Head Magnetic Resonance Angiography 08/01/16 0000 Signed Impressions: Service Date/Time: Monday, August 01, 2016 10:49 - CONCLUSION: 1. Anatomic detail is very limited due to motion artifact. 2. However, I believe the inflow and intracranial vessels are patent without aneurysmal disease. Anatomic variant of the [place]. Nader Teresa MD Chest X-Ray 08/01/16 0000 Signed Impressions: Service Date/Time: Monday, August 01, 2016 19:53 - CONCLUSION: Superior and inferior vena caval filter is present. Randal Jaramillo MD Abdomen X-Ray 08/01/16 0000 Signed Impressions: Service Date/Time: Monday, August 01, 2016 20:02 - CONCLUSION: Retrievable IVC filter is present. Randal Jaramillo MD Head CT 07/31/16 0000 Signed Impressions: Service Date/Time: July 18:10 - CONCLUSION: 1. Remote infarct left occipital lobe. No acute infarction on the current examination. Justin Grossman MD Brain MRI 07/31/16 0000 Signed Impressions: Service Date/Time: July 21:50 - CONCLUSION: 1. Remote infarct in left occipital lobe. No acute infarct or mass. Justin Grossman MD Objective Remarks GENERAL: NAD SKIN: Warm and dry. HEAD: Normocephalic. EYES: No scleral icterus. No injection or drainage. NECK: Supple, trachea midline. No JVD or lymphadenopathy. CARDIOVASCULAR: Regular rate and rhythm without murmurs, gallops, or rubs. RESPIRATORY: Breath sounds equal bilaterally. No accessory muscle use. GASTROINTESTINAL: Abdomen soft, non-tender, nondistended. MUSCULOSKELETAL: No cyanosis, or edema. BACK: Nontender without obvious deformity. No CVA tenderness. 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 Head CT and brain MRI images reviewed, shows remote infarct left occipital lobe; no acute infarct. Appreciate input from neurology, Dr. Carcamo. Continue patient's Xarelto and statin. Consult PT. Sickle cell crisis: Appreciate input from hematology, however questionable ecchymosis of sickle cell. Hemoglobin electrophoresis pending as well as flow cytometry for PNM. Continue current pain management however which and Dilaudid 2 mg every 4 when necessary this evening per patient request and continue aggressive IV fluid hydration, folate and hydroxyurea Hyperglycemia: glucose 294. No hx of diabetes. HgbA1c pending. DVT Prophylaxis: on Kevin Tyler MD Aug 02, 2016 14:01
[2016-08-02] MEDS ORDERED: oxyCODONE/ACETAMINOPHEN 5 MG/325 MG TAB PO PRN ×2 (17:00)
--- NOTE | 2016-08-02 20:03 | EC ---
Study Study Date:08/02/2016 STUDY CONCLUSIONS SUMMARY - Left ventricle: The cavity size was normal. Wall thickness was increased in a pattern of mild LVH. Systolic function was normal. The estimated ejection fraction was 60%. Wall motion was normal; there were no regional wall motion abnormalities. - Mitral valve: Mild regurgitation. - Tricuspid valve: Mild regurgitation. - Pulmonary arteries: Systolic pressure was mildly increased. PA peak pressure: 41mm Hg (S). If LV function is below 40, please consider prescribing an ACEI or ARB or document rationale for non-use. PROCEDURE DATA STUDY STATUS: Elective. Procedure: Transthoracic echocardiography. Image quality was good. Scanning was performed from the parasternal, apical, and subcostal acoustic windows. Study completion: The patient tolerated the procedure well. Transthoracic echocardiography. M-mode, complete 2D, complete spectral Doppler, and color Doppler. Height: Height: 68in. Weight: Weight: 243.5lb. Body mass index: BMI: 37.1kg/m^2. Body surface area: BSA: 2.22m^2. Patient status: Inpatient. CARDIAC ANATOMY LEFT VENTRICLE: The cavity size was normal. Wall thickness was increased in a pattern of mild LVH. Systolic function was normal. The estimated ejection fraction was 60%. Wall motion was normal; there were no regional wall motion abnormalities. AORTIC VALVE: Trileaflet; normal thickness leaflets. Doppler: Transvalvular velocity was within the normal range. There was no stenosis. No regurgitation. Valve area: 2.64cm^2(VTI). Indexed valve area: 1.19cm^2/m^2 (VTI). Valve area: 2.26cm^2 (Vmax). Indexed valve area: 1.02cm^2/m^2 (Vmax). Mean gradient: 2mm Hg (S). AORTA: Aortic root: The aortic root was normal in size. MITRAL VALVE: Structurally normal valve. Doppler: Transvalvular velocity was within the normal range. There was no evidence for stenosis. Mild regurgitation. LEFT ATRIUM: The atrium was normal in size. RIGHT VENTRICLE: The cavity size was normal. Wall thickness was normal. PULMONIC VALVE: Doppler: Transvalvular velocity was within the normal range. There was no evidence for stenosis. No regurgitation. TRICUSPID VALVE: Structurally normal valve. Doppler: Transvalvular velocity was within the normal range. Mild regurgitation. PULMONARY ARTERY: The main pulmonary artery was normal-sized. Systolic pressure was mildly increased. RIGHT ATRIUM: The atrium was normal in size. PERICARDIUM: There was no pericardial effusion. SYSTEMIC VEINS: Inferior vena cava: The vessel was normal in size. Patient weight: 243.5lb _Ejection fraction:_ 65-75% _Fractional shortening:_ 32% up to 5Kg 5-11.5Kg 11.6-22.9Kg 23-45Kg 45-57Kg Aortic Root 7-13 <17 13-22 17-27 17-27 LA diam 6-13 <23 24-38 33-47 37-40 RVID 10-17 7-15 7-15 7-18 8-17 LVIDd 12-22 <32 24-38 33-47 37-40 LVPW 2-4 3-6 5-7 6-8 7-8 IVS 2-4 3-6 5-7 6-8 7-8 BASIC MEASUREMENTS ADULT NORMAL Left ventricle LV internal dimension, ED, chordal *39.8 mm 43-52 level, PLAX LV internal dimension, ES, chordal 29.8 mm 23-38 level, PLAX Fractional shortening, chordal level, *25 % >29 PLAX LV posterior wall thickness, ED 12.7 mm IVS/LVPW ratio, ED 1 <1.3 Ventricular septum Septal thickness, ED 12.7 mm Aortic valve Leaflet separation 25 mm 15-26 Aorta Root diameter, ED 33 mm Left atrium Anterior-posterior dimension 31 mm Anterior-posterior dimension index 1.4 cm/m^2 <2.2 BASIC MEASUREMENTS ADULT NORMAL Aortic valve Leaflet separation 25 mm 15-26 DOPPLER MEASUREMENTS ADULT NORMAL Main pulmonary artery Pressure, S *41 mm Hg =30 Aortic valve Peak velocity, S 97.9 cm/s Mean velocity, S 65.7 cm/s VTI, S 16.7 cm Mean gradient, S 2 mm Hg Valve area, VTI 2.64 cm^2 Valve area index, VTI 1.19 cm^2/m^2 Valve area, Vmax 2.26 cm^2 Valve area index, Vmax 1.02 cm^2/m^2 Mitral valve Peak E-wave velocity 68.1 cm/s Peak A-wave velocity 41 cm/s Deceleration time 169 ms 150-230 Peak E/A ratio 1.7 Tricuspid valve Regurgitant peak velocity 282 cm/s Peak RV-RA gradient, S 32 mm Hg Maximal regurgitant velocity 282 cm/s Systemic veins Estimated CVP 10 mm Hg Right ventricle RV pressure, S *42 mm Hg <30 Pulmonic valve Peak velocity, S 53.4 cm/s LEGEND: Mean values are shown as u=mean value. Asterisk (*) young values outside specified normal range. Martir Ribeiro [id number]
[2016-08-02] MEDS: ATORVASTATIN 20 MG TAB PO SCH (22:58)
[2016-08-02] MEDS: HYDROXYUREA 500 MG CAP PO SCH (22:58)
[2016-08-03] MEDS: diphenhydrAMINE HCL 50 MG/ML VIAL IV PUSH PRN ×3 (03:23→11:45)
[2016-08-03] MEDS: HYDROmorphone HCL PF 2 MG/ML VIAL IV PUSH PRN ×2 (03:24→10:02)
[2016-08-03 03:37] VITALS: BP 156/90; PULSE 105; RESP 20; TEMP 98; O2SAT 99
[2016-08-03] MEDS ORDERED: HYDROmorphone HCL PF 2 MG/ML VIAL IV PUSH ONE (05:45)
[2016-08-03 07:54] VITALS: BP 164/93; PULSE 76; RESP 20; TEMP 98.6; O2SAT 98
[2016-08-03] MEDS: FOLIC ACID 1 MG TAB PO SCH (08:57)
[2016-08-03] MEDS: RIVAROXABAN 20 MG TAB PO SCH (08:57)
[2016-08-03] MEDS: HYDROXYUREA 500 MG CAP PO SCH (09:00)
[2016-08-03 09:22] VITALS: O2SAT 98
[2016-08-03 11:28] VITALS: BP 141/78; PULSE 127; RESP 20; TEMP 98.3; O2SAT 96
[2016-08-03 12:00] VITALS: PULSE 88
--- NOTE | 2016-08-03 12:20 | HHI.PR ---
Subjective Remarks Follow-up right sided hemiparesis/SCC? 08/02/16-patient seen and examined, no acute event overnight and pain currently controlled. 08/03/16-patient seen and examined; reports significant improvements of generalized pain and patient state is ready for discharge home. Discussed with patient her diagnosis of diabetes type 2 Objective Vitals Vital Signs Date Time Temp Pulse Resp B/P Pulse Ox O2 Delivery O2 Flow Rate FiO2 08/03/16 12:00 88 08/03/16 11:28 98.3 127 20 141/78 96 08/03/16 10:32 20 08/03/16 09:22 98 21 08/03/16 08:41 20 08/03/16 07:54 98.6 76 20 164/93 98 08/03/16 06:35 18 08/03/16 03:37 98.0 105 20 156/90 99 08/02/16 23:36 88 08/02/16 19:27 98.9 95 99 08/02/16 16:46 97.6 93 20 170/84 97 08/02/16 15:33 20 I/O 08/02/16 08/02/16 08/02/16 08/03/16 08/03/16 08/03/16 07:00 15:00 23:00 07:00 15:00 23:00 Intake Total 2300 ml Output Total 1500 ml Balance 800 ml Intake Oral 1200 ml IV Total 1100 ml Output Urine Total 1500 ml # Voids 3 # Bowel Movements 0 Result Diagram: 08/01/16214908/01/160 Imaging Last Impressions Neck Magnetic Resonance Angiography 08/01/16 0000 Signed Impressions: Service Date/Time: Monday, August 01, 2016 10:49 - CONCLUSION: Bovine arch. Cervical vessels are otherwise patent. Nader Teresa MD Head Magnetic Resonance Angiography 08/01/16 0000 Signed Impressions: Service Date/Time: Monday, August 01, 2016 10:49 - CONCLUSION: 1. Anatomic detail is very limited due to motion artifact. 2. However, I believe the inflow and intracranial vessels are patent without aneurysmal disease. Anatomic variant of the [place]. Nader Teresa MD Chest X-Ray 08/01/16 0000 Signed Impressions: Service Date/Time: Monday, August 01, 2016 19:53 - CONCLUSION: Superior and inferior vena caval filter is present. Randal Jaramillo MD Abdomen X-Ray 08/01/16 0000 Signed Impressions: Service Date/Time: Monday, August 01, 2016 20:02 - CONCLUSION: Retrievable IVC filter is present. Randal Jaramillo MD Head CT 07/31/16 0000 Signed Impressions: Service Date/Time: July 18:10 - CONCLUSION: 1. Remote infarct left occipital lobe. No acute infarction on the current examination. Justin Grossman MD Brain MRI 07/31/16 0000 Signed Impressions: Service Date/Time: July 21:50 - CONCLUSION: 1. Remote infarct in left occipital lobe. No acute infarct or mass. Justin Grossman MD Objective Remarks GENERAL: NAD SKIN: Warm and dry. HEAD: Normocephalic. EYES: No scleral icterus. No injection or drainage. NECK: Supple, trachea midline. No JVD or lymphadenopathy. CARDIOVASCULAR: Regular rate and rhythm without murmurs, gallops, or rubs. RESPIRATORY: Breath sounds equal bilaterally. No accessory muscle use. GASTROINTESTINAL: Abdomen soft, non-tender, nondistended. MUSCULOSKELETAL: No cyanosis, or edema. BACK: Nontender without obvious deformity. No CVA tenderness. 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 Head CT and brain MRI images reviewed, shows remote infarct left occipital lobe; no acute infarct. 2-D echo with EF of 60% Appreciate input from neurology, Dr. Carcamo. Continue patient's Xarelto and statin. Consult PT. Sickle cell crisis: Appreciate input from hematology, however questionable history of sickle cell. Hemoglobin electrophoresis pending as well as flow cytometry for PNM. Condition improving with IV fluid hydration, folate and hydroxyurea Newly diagnosis of diabetes type 2: Hemoglobin A1c of 7.9. Start patient on metformin 500 mg by mouth twice a day. Recommended health educator nurse consultation however the patient is being discharged and will follow up with PCP DVT Prophylaxis: on xarelto I spent 35 minutes [id number] with the patient or on the pulliam discussing the patient's disposition, prognosis, and plan of care with the patient. Over half the time spent was devoted to counseling the patient regarding newly diagnosed diabetes type 2 Discharge Planning Discharge home Kevin Mcneill MD Aug 03, 2016 12:20
--- NOTE | 2016-08-03 12:21 | PD.ONC.PN ---
Subjective Subjective Remarks Afebrile overnight. Pt sitting up on side of bed in no distress. Dr. Mcneill at bedside as well. The pt states he feels much better and would like to go home. Unfortunately, he tells me that his brother was unable to bring in his previous records, or his prescription bottle of Hydroxyurea that he says he takes. Objective Data Date Time Temp Pulse Resp B/P Pulse Ox O2 Delivery O2 Flow Rate FiO2 08/03/16 12:00 88 08/03/16 11:28 98.3 127 20 141/78 96 08/03/16 10:32 20 08/03/16 09:22 98 21 08/03/16 08:41 20 08/03/16 07:54 98.6 76 20 164/93 98 08/03/16 06:35 18 08/03/16 03:37 98.0 105 20 156/90 99 08/02/16 23:36 88 08/02/16 19:27 98.9 95 99 08/02/16 16:46 97.6 93 20 170/84 97 08/02/16 15:33 20 Result Diagram: 08/01/16214908/01/162149 Administered Medications Medications (Trade) Dose Ordered Sig/Ashu Route PRN Reason Start Time Stop Time Status Last Admin Dose Admin Sodium Chloride (NS Flush) 2 ml BID IV FLUSH 08/01/16 09:00 08/02/16 09:00 Rivaroxaban (Xarelto) 20 mg DAILY PO 08/01/16 10:00 08/03/16 08:57 Atorvastatin Calcium (Lipitor) 60 mg HS PO 08/01/16 21:00 08/02/16 22:58 Folic Acid (Folate) 1 mg DAILY PO 08/02/16 09:00 08/03/16 08:57 Diphenhydramine HCl (Benadryl Inj) 50 mg Q4H PRN IV PUSH itching 08/01/16 17:45 08/03/16 11:45 Hydroxyurea (Hydrea) 1,500 mg BID PO 08/02/16 21:00 08/03/16 09:00 Hydromorphone HCl (Dilaudid Pf Inj) 2 mg Q4H PRN IV PUSH PAIN SCALE 7 TO 10 08/02/16 19:00 08/03/16 10:02 Oxycodone/ Acetaminophen (Percocet 5-325 Mg) 1 tab Q4H PRN PO PAIN SCALE 1 TO 6 08/02/16 17:00 08/03/16 07:41 Objective Remarks GENERAL: Overweight young male in no distress. SKIN: Warm and dry. HEAD: Normocephalic. EYES: No injection or drainage. NECK: Supple, trachea midline. CARDIOVASCULAR: +S1/S2. No murmur appreciated. RESPIRATORY: Breath sounds equal bilaterally. No accessory muscle use. GASTROINTESTINAL: Abdomen soft, non-tender, nondistended. EXTREMITIES: No cyanosis, or edema. NEUROLOGICAL: No obvious focal deficit. Awake, alert, and oriented x3. Assessment/Plan Assessment 30 y/o male who presents to the ER with c/o R sided upper and lower extremity weakness. Plan The pt is being discharged home today. It is unfortunate that he was not able to bring in his records from his prior hgb electrophoresis. This would have given us a better idea of the picture surrounding his diagnosis. He is going home today as he feels better. 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 Attending Statement patient did not provide promised records or the bottle of oh-urea that he stated he was taking. To date many of his claims remain unsubstantiated and in conflict with information from his previous physician and the data acquired during his hospitalization. I doubt that we will see him again. Aysha Hardin Aug 03, 2016 12:21 John Rain MD Aug 03, 2016 15:20
[2016-08-03] MEDS ORDERED: METF500 PO (12:23)
--- NOTE | 2016-08-03 12:28 | HHI.DS ---
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 The patient reports yesterday he started to notice weakness of the right face, right arm, and right leg. He feels he is having a sickle cell crisis however he has presented the same way with previous strokes. He states usually once a stroke is ruled out, it requires IV Dilaudid 2mg q2h and IV Benadryl 50mg q4h to treat his sickle cell crisis. He complains of diffuse pain throughout his back, hands, legs. Denies any new injury. Denies any recent nausea/vomiting/diarrhea. He has been eating well. He is very upset he is not receiving his usual dose of pain medication and is difficult to obtain further information. His caterpillar operator is Dr. Damico in [place], [place] (call placed to the office at , left a message with alumni secretary for MD to return call). His internal medicine/neurologist is Dr. Michael Zuluaga in [place], [place] (call placed to , office still closed at this time). 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 CBC/BMP: [id number]/01/[id number] Significant Findings Laboratory Tests Test 07/31/16 07/31/16 08/01/16 08/02/16 18:15 18:25 21:50 11:44 White Blood Count 3.5 TH/MM3 3.1 TH/MM3 (4.0-11.0) (4.0-11.0) Red Blood Count 3.15 MIL/MM3 3.22 MIL/MM3 (4.50-5.90) (4.50-5.90) Hemoglobin 10.2 GM/DL 10.2 GM/DL (13.0-17.0) (13.0-17.0) Hematocrit 30.6 % 30.5 % (39.0-51.0) (39.0-51.0) Red Cell Distribution Width 27.2 % 27.3 % (11.6-17.2) (11.6-17.2) Platelet Count 131 TH/MM3 (150-450) Monocytes (%) (Auto) 8.8 % (0.0-8.0) 12.6 % (0.0-8.0) Platelet Estimate LOW (NORMAL) Tear Drop Cells 1+ (NORMAL) 1+ (NORMAL) Ovalocytes 1+ (NORMAL) 1+ (NORMAL) Prothrombin Time 12.2 SEC (9.8-11.6) Urine Glucose (UA) 1000 mg/dL (NEG) Urine Ketones TRACE mg/dL (NEG) Urine Opiates Screen POS (NEG) Bedside Hemoglobin 10.2 G/DL (12.0-17.0) Bedside Hematocrit 30.0 % (38.0-51.0) Bedside Blood Urea Nitrogen LESS THAN 3 MG/DL (8-26) Bedside Creatinine 0.7 MG/DL (0.8-1.3) Bedside Glucose 294 MG/DL (60-95) Troponin I LESS THAN 0.02 NG/ML (0.02-0.05) Lymphocytes (%) (Auto) 45.9 % (9.0-44.0) Neutrophils # (Auto) 1.2 TH/MM3 (1.8-7.7) Erythrocyte Sedimentation Rate 19 mm/hr (0-15) Haptoglobin LESS THAN 10 MG/DL (30-200) Blood Urea Nitrogen 5 MG/DL (7-18) Random Glucose 154 MG/DL (74-106) Hemoglobin A1c 7.9 % (4.3-6.0) Calcium Level 8.4 MG/DL (8.5-10.1) Alkaline Phosphatase 137 U/L (45-117) Lactate Dehydrogenase 282 U/L (87-241) Cholesterol Level 114 MG/DL (120-200) HDL Cholesterol 39.5 MG/DL (40.0-60.0) Imaging Last Impressions Neck Magnetic Resonance Angiography 08/01/16 0000 Signed Impressions: Service Date/Time: Monday, August 01, 2016 10:49 - CONCLUSION: Bovine arch. Cervical vessels are otherwise patent. Nader Teresa MD Head Magnetic Resonance Angiography 08/01/16 0000 Signed Impressions: Service Date/Time: Monday, August 01, 2016 10:49 - CONCLUSION: 1. Anatomic detail is very limited due to motion artifact. 2. However, I believe the inflow and intracranial vessels are patent without aneurysmal disease. Anatomic variant of the [place] of [place]. Nader Teresa MD Chest X-Ray 08/01/16 0000 Signed Impressions: Service Date/Time: Monday, August 01, 2016 19:53 - CONCLUSION: Superior and inferior vena caval filter is present. Randal Jaramillo MD Abdomen X-Ray 08/01/16 0000 Signed Impressions: Service Date/Time: Monday, August 01, 2016 20:02 - CONCLUSION: Retrievable IVC filter is present. Randal Jaramillo MD Head CT 07/31/16 0000 Signed Impressions: Service Date/Time: July 18:10 - CONCLUSION: 1. Remote infarct left occipital lobe. No acute infarction on the current examination. Justin Grossman MD Brain MRI 07/31/16 0000 Signed Impressions: Service Date/Time: July 21:50 - CONCLUSION: 1. Remote infarct in left occipital lobe. No acute infarct or mass. Justin Grossman MD PE at Discharge GENERAL: NAD SKIN: Warm and dry. HEAD: Normocephalic. EYES: No scleral icterus. No injection or drainage. NECK: Supple, trachea midline. No JVD or lymphadenopathy. CARDIOVASCULAR: Regular rate and rhythm without murmurs, gallops, or rubs. RESPIRATORY: Breath sounds equal bilaterally. No accessory muscle use. GASTROINTESTINAL: Abdomen soft, non-tender, nondistended. MUSCULOSKELETAL: No cyanosis, or edema. BACK: Nontender without obvious deformity. No CVA tenderness. Neuro: CN I-XII intact Hospital Course Patient was admitted secondary to right sided hemiparesis for which neurology was consulted and multiple imaging studies performed which did no reveal any evidence of acute infarct. He was continued on his Xarelto and physical therapy was consulted. She also was treated for presumably sickle cell crisis with aggressive IV fluid hydration and pain management with consultation to hematology. He was continued on his outpatient medications. His pain improved.Hemoglobin electrophoresis pending as well as flow cytometry for PNM were performed however not resulted at this time. Patient was also diagnosed with diabetes type 2 with A1c of 7.9 and he was started on metformin 500 mg by mouth twice a day. DVT prophylaxis was provided. Vitals were monitor and patient's condition improved prior to discharge. Pt Condition on Discharge: Stable Discharge Disposition: Discharge Home Discharge Time: > 30 minutes Discharge Instructions DIET: Follow Instructions for: Diabetic Diet Activities you can perform: Regular-No Restrictions Follow up Referrals: Oncology PCP Follow-up - 1 Week New Medications: Metformin (Glucophage) 500 Mg Tab 500 MG PO BIDPC Blood Sugar Management #60 TAB Continued Medications: Atorvastatin (Lipitor) 20 Mg Tab 60 MG PO HS Cholesterol Management #30 Ref 0 TAB Folic Acid (Folate) 1 Mg Tab 1 MG PO DAILY Nutritional Supplement Ref 0 TAB Hydroxyurea (Hydrea) 500 Mg Cap 1500 MG PO BID Ref 0 CAP Rivaroxaban (Xarelto) 20 Mg Tab 20 MG PO DAILY Blood Clot Prevention Ref 0 TAB Kevin Mcneill MD Aug 03, 2016 12:28 Hydroxyurea (Hydrea) 500 Mg Cap 1500 MG PO BID Ref 0 CAP Rivaroxaban (Xarelto) 20 Mg Tab 20 MG PO DAILY Blood Clot Prevention Ref 0 TAB Kevin Mcneill MD Aug 03, 2016 12:28
[2016-08-03] MEDS ORDERED: metFORMIN HCL 500 MG TAB PO SCH (12:30)
[2016-08-08 13:01] LABS: HEMOGLOBIN A 64.9 % (95.8-98.0); HEMOGLOBIN A2 3.2 % (2.0-3.3); HEMOGLOBIN F 5.2 % (0.0-0.9)
== END 2016-08-03 13:10 | disposition home or self-care (01) ==
LOC: NEPC 17:46 → NEDA 23:39 → NEPFCDU 08-01 03:28
PROVIDERS: ADMIT Hospitalist; ATTEND Hospitalist
DX: G81.91 Hemiplegia, unspecified affecting right dominant side (principal); D57.00 Hb-SS disease with crisis, unspecified; D68.59 Other primary thrombophilia; E66.9 Obesity, unspecified; I69.30 Unspecified sequelae of cerebral infarction; E11.65 Type 2 diabetes mellitus with hyperglycemia; R94.31 Abnormal electrocardiogram [ECG] [EKG]; Z86.73 Personal history of transient ischemic attack (TIA), and cerebral infarction without residual deficits; Z79.01 Long term (current) use of anticoagulants; Z68.37 Body mass index [BMI] 37.0-37.9, adult
CPT/HCPCS: 70450; 70544; 70548; 70551; 71020; 74000; 76937; 80053; 80061; 80307; 81001; 82435; 82550; 82565; 82607; 82947; 83010; 83020; 83036; 83615; 84132; 84295; 84443; 84484; 84520; 85025; 85044; 85303; 85384; 85610; 85652; 85730; 86850; 86880; 86900; 86901; 93005; 93306; 96361; 96374; 96375; 96376; G0378; G8987-GP; G8988-GP; J1170; J1200; J2060; J2270; J7030